=== PATIENT | male | born 1995 | race Two or more races ===

== ENCOUNTER 2019-11-15 22:45 | Emergency (ER) | payer OTHER, BC ==
[~2019-11-15] VITALS: Ht 170.2 cm; Wt 99.8 kg
[2019-11-15] MEDS ORDERED: HYDROCODONE/APAP 5/325MG 1 EACH TABLET PO ONE (23:30)
[2019-11-15] MEDS ORDERED: CARISOPRODOL 350 MG TABLET PO ONE (23:30)
[2019-11-15] MEDS ORDERED: HYDROCODONE/APAP 5/325MG 1 EACH TABLET ONE (23:33)
[2019-11-15] MEDS ORDERED: CARISOPRODOL 350 MG TABLET ONE (23:33)
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
--- NOTE | 2019-11-16 01:41 | NUR ---
Patient discharged to home in stable condition. Written and verbal after care instructions given. Patient verbalizes understanding of instruction and RX. Emt Placed geri wrap. Pt ambulated with steady gait. VSS. left with parents.
[2019-11-16 01:42] VITALS: BP 128/76
== END 2019-11-16 02:00 | disposition home or self-care (01) ==
LOC: ER 22:46
DX: S93.491A Sprain of other ligament of right ankle, initial encounter (principal); S20.211A Contusion of right front wall of thorax, initial encounter; M79.642 Pain in left hand; M25.511 Pain in right shoulder; M54.6 Pain in thoracic spine; V49.49XA Driver injured in collision with other motor vehicles in traffic accident, initial encounter; Y93.89 Activity, other specified; Y92.413 State road as the place of occurrence of the external cause; Y99.8 Other external cause status
CPT/HCPCS: 71045-TC; 72074-TC; 73030-TC; 73130-TC; 73610-TC